=== PATIENT | female | born 1990 | race Caucasian/White ===

== ENCOUNTER 2018-05-07 16:21 | Inpatient (IN) | payer OTHER ==
[~2018-05-07] VITALS: Ht 165.1 cm; Wt 70.0 kg
[2018-05-07 16:32] VITALS: BP 107/52
[2018-05-07 18:30] LABS: BASOPHILS # (AUTO) 0.04 x10^3/uL (0-0.1); BASOPHILS % (AUTO) 0 % (0-1); EOSINOPHILS # (AUTO) 0.07 x10^3/uL (0-0.4); EOSINOPHILS % (AUTO) 1 % (1-7); LYMPHOCYTES # (AUTO) 1.84 x10^3/uL (1-3.4); LYMPHOCYTES % (AUTO) 15 % (22-44); MD NO; MEAN CORPUSCULAR HEMOGLOBIN 30.1 pg (27.0-34.8); MEAN CORPUSCULAR HGB CONC 33.5 g/dL (32.4-35.8); MEAN CORPUSCULAR VOLUME 89.7 fL (80-100); MEAN PLATELET VOLUME 9.7 fL (7.4-10.4); MONOCYTES # (AUTO) 0.93 x10^3/uL (0.2-0.8); MONOCYTES % (AUTO) 8 % (2-9); NEUTROPHILS % (AUTO) 76 % (42-75); PLATELET COUNT 182 x10^3/uL (130-400); RED BLOOD COUNT 3.99 x10^6/uL (3.82-5.3); RED CELL DISTRIBUTION WIDTH 12.4 % (9.6-15.2)
[2018-05-07 19:00] VITALS: BP 108/63
[2018-05-08] MEDS ORDERED: OXYTOCIN 30U/ 0.9% NaCL 500ML 500 ML IV SCH (07:37)
[2018-05-08 07:41] VITALS: BP 103/59
[2018-05-08] MEDS ORDERED: SODIUM CITRATE/CITRIC ACID 30 ML UDC PO ONE (08:00)
[2018-05-08] MEDS ORDERED: LACTATED RINGERS 1,000 ML IVBOLUS ONE (08:00)
[2018-05-08] MEDS ORDERED: ONDANSETRON 2MG/ML, 2ML IVPush ONE (08:00)
[2018-05-08] MEDS ORDERED: CEFAZOLIN PMX 1GM/50ML 50 ML IVPB ONE (08:00)
[2018-05-08] MEDS ORDERED: PNV11TAB5 PO (08:12)
[2018-05-08] MEDS ORDERED: METOCLOPRAMIDE 5 MG/ML, 2ML IV ONE (09:00)
[2018-05-08] MEDS ORDERED: LACTATED RINGERS 1,000 ML IV SCH ×2 (11:00→18:47)
[2018-05-08] MEDS: LACTATED RINGERS 1,000 ML IV SCH ×4 (12:36→22:00)
[2018-05-08] MEDS ORDERED: OXYTOCIN 30U/ 0.9% NaCL 500ML 500 ML ONE (15:26)
[2018-05-08] MEDS ORDERED: SODIUM CITRATE/CITRIC ACID 30 ML UDC ONE (16:21)
[2018-05-08] MEDS ORDERED: METOCLOPRAMIDE 5 MG/ML, 2ML ONE (16:21)
[2018-05-08] MEDS ORDERED: morphine SULFATE/PF 0.5 MG/ML, 10ML ONE (16:36)
[2018-05-08] MEDS ORDERED: CEFAZOLIN 2,000 MG in SODIUM CHLORIDE 0.9% 50 ML IV ONE ×2 (17:30→17:33)
[2018-05-08] MEDS ORDERED: ONDANSETRON 2MG/ML, 2ML ONE (17:32)
[2018-05-08] MEDS ORDERED: EPHEDRINE 50 MG/ML, 1ML ONE (17:32)
[2018-05-08] MEDS ORDERED: OXYTOCIN 10 UNITS/ML, 1ML ONE (17:32)
[2018-05-08] MEDS ORDERED: CEFAZOLIN 1,000 MG ONE ×2 (17:32→18:10)
[2018-05-08] MEDS ORDERED: PHENYLEPHRINE 10 MG/ML ONE (17:32)
[2018-05-08] MEDS ORDERED: WATER-INJECTION,STERILE 10 ML IV ONE (17:32)
[2018-05-08] MEDS ORDERED: METHYLERGONOVINE 0.2 MG/ML IM PRN (19:00)
[2018-05-08] MEDS ORDERED: MISOPROSTOL 200 MCG TABLET PR PRN (19:00)
[2018-05-08] MEDS ORDERED: CARBOPROST TROMETHAMINE 250 MCG/ML, 1ML IM PRN (19:00)
[2018-05-08] MEDS ORDERED: KETOROLAC 30 MG/1 ML ONE (19:17)
[2018-05-08] MEDS: KETOROLAC 30 MG/1 ML IM SCH (19:25)
[2018-05-08] MEDS: OXYTOCIN 30U/ 0.9% NaCL 500ML 500 ML IV SCH (20:15)
[2018-05-08] MEDS: ONDANSETRON 2MG/ML, 2ML IV PRN (21:20)
[2018-05-08 22:00] VITALS: BP 99/60
[2018-05-09] MEDS: LACTATED RINGERS 1,000 ML IV SCH ×5 (01:16→17:16)
[2018-05-09] MEDS: KETOROLAC 30 MG/1 ML IM SCH (01:28)
[2018-05-09 01:37] VITALS: BP 107/64
[2018-05-09 04:20] LABS: BASOPHILS # (AUTO) 0.04 x10^3/uL (0-0.1); BASOPHILS % (AUTO) 0 % (0-1); EOSINOPHILS # (AUTO) 0.02 x10^3/uL (0-0.4); EOSINOPHILS % (AUTO) 0 % (1-7); LYMPHOCYTES # (AUTO) 1.36 x10^3/uL (1-3.4); LYMPHOCYTES % (AUTO) 10 % (22-44); MD NO; MEAN CORPUSCULAR HEMOGLOBIN 29.8 pg (27.0-34.8); MEAN CORPUSCULAR HGB CONC 33.8 g/dL (32.4-35.8); MEAN CORPUSCULAR VOLUME 88.4 fL (80-100); MEAN PLATELET VOLUME 9.7 fL (7.4-10.4); MONOCYTES # (AUTO) 0.78 x10^3/uL (0.2-0.8); MONOCYTES % (AUTO) 6 % (2-9); NEUTROPHILS # (AUTO) 11.54 x10^3/uL (1.8-6.8); NEUTROPHILS % (AUTO) 84 % (42-75); PLATELET COUNT 149 x10^3/uL (130-400); RED BLOOD COUNT 2.97 x10^6/uL (3.82-5.3); RED CELL DISTRIBUTION WIDTH 12.1 % (9.6-15.2)
[2018-05-09 04:44] VITALS: BP 99/63
[2018-05-09] MEDS: OXYTOCIN 30U/ 0.9% NaCL 500ML 500 ML IV SCH ×2 (04:47→14:47)
[2018-05-09] MEDS: OXYcodone/APAP 5/325MG TABLET PO PRN (06:26)
[2018-05-09] MEDS: ONDANSETRON 2MG/ML, 2ML IV PRN (06:26)
[2018-05-09 07:45] VITALS: BP 99/60
[2018-05-09] MEDS ORDERED: KETOROLAC 30 MG/1 ML ONE (08:11)
[2018-05-09] MEDS: KETOROLAC 30 MG/1 ML IVPush SCH ×3 (08:20→20:55)
[2018-05-09] MEDS: PRENATAL VIT/IRON/FA 1 EACH TABLET PO SCH (09:00)
[2018-05-09] MEDS: ACETAMINOPHEN 325 MG TABLET PO PRN ×2 (10:19→14:56)
[2018-05-09] MEDS: OXYcodone IR 5MG TABLET PO PRN ×3 (10:19→20:55)
[2018-05-09 11:45] VITALS: BP_SYST 120; BP_SYST 94; BP_DIAS 57; BP_DIAS 79
[2018-05-09] MEDS ORDERED: KETOROLAC 30 MG/1 ML IVPush SCH (13:30)
[2018-05-09] MEDS: FERROUS GLUCONATE 324 MG TABLET PO SCH (17:08)
[2018-05-09 20:50] VITALS: BP 100/65
[2018-05-10] MEDS: OXYTOCIN 30U/ 0.9% NaCL 500ML 500 ML IV SCH ×3 (00:47→20:47)
[2018-05-10] MEDS: LACTATED RINGERS 1,000 ML IV SCH ×6 (00:47→20:47)
[2018-05-10] MEDS: DOCUSATE 100 MG CAPSULE PO PRN ×2 (02:39→09:56)
[2018-05-10] MEDS: KETOROLAC 30 MG/1 ML IVPush SCH ×2 (02:39→09:56)
[2018-05-10 07:10] VITALS: BP 99/61
[2018-05-10] MEDS: OXYcodone IR 5MG TABLET PO PRN ×3 (09:56→21:48)
[2018-05-10] MEDS: PRENATAL VIT/IRON/FA 1 EACH TABLET PO SCH (09:56)
[2018-05-10] MEDS: FERROUS GLUCONATE 324 MG TABLET PO SCH (17:09)
[2018-05-10] MEDS: IBUPROFEN 600 MG TABLET PO PRN (17:09)
[2018-05-10 20:10] VITALS: BP 104/66
[2018-05-11] MEDS: LACTATED RINGERS 1,000 ML IV SCH ×2 (01:16→06:47)
[2018-05-11] MEDS: OXYTOCIN 30U/ 0.9% NaCL 500ML 500 ML IV SCH (06:47)
[2018-05-11] MEDS: OXYcodone IR 5MG TABLET PO PRN (07:01)
[2018-05-11 07:05] VITALS: BP 106/67
[2018-05-11] MEDS: DOCUSATE 100 MG CAPSULE PO PRN (08:03)
[2018-05-11] MEDS: PRENATAL VIT/IRON/FA 1 EACH TABLET PO SCH (08:03)
[2018-05-11] MEDS: IBUPROFEN 600 MG TABLET PO PRN ×2 (12:30→18:36)
[2018-05-11 20:00] VITALS: BP 110/68
[2018-05-11] MEDS: FERROUS GLUCONATE 324 MG TABLET PO SCH (22:15)
[2018-05-12] MEDS: OXYcodone IR 5MG TABLET PO PRN ×2 (00:03→16:17)
[2018-05-12] MEDS ORDERED: IBUP-1222 PO (07:58)
[2018-05-12] MEDS ORDERED: OXYC-302 PO (07:58)
[2018-05-12] MEDS ORDERED: DOCU-131 PO (07:58)
[2018-05-12] MEDS ORDERED: FERR324T8 PO (07:59)
[2018-05-12] MEDS: IBUPROFEN 600 MG TABLET PO PRN ×2 (08:11→16:17)
[2018-05-12] MEDS: OXYcodone/APAP 5/325MG TABLET PO PRN (08:11)
[2018-05-12] MEDS: PRENATAL VIT/IRON/FA 1 EACH TABLET PO SCH (08:12)
[2018-05-12] MEDS: DOCUSATE 100 MG CAPSULE PO PRN (08:12)
[2018-05-12 08:45] VITALS: BP 106/68
== END 2018-05-12 16:25 | disposition home or self-care (01) | DRG 765 ==
LOC: LDOP 16:21 → LDIP 17:45 → OBSVTOIN 17:45 → 2NW 05-08 20:52
PROVIDERS: ADMIT Obstetrics & Gynecology Maternal & Fetal Medicine; ATTEND Obstetrics & Gynecology Maternal & Fetal Medicine
PROC: 10D00Z1 Extraction of Products of Conception, Low, Open Approach (ICD-10-PCS; principal; 2018-05-08)
DX: O32.1XX0 Maternal care for breech presentation, not applicable or unspecified (principal); O36.5930 Maternal care for other known or suspected poor fetal growth, third trimester, not applicable or unspecified; O76 Abnormality in fetal heart rate and rhythm complicating labor and delivery; O90.81 Anemia of the puerperium; D64.9 Anemia, unspecified; Z3A.37 37 weeks gestation of pregnancy; Z37.0 Single live birth
CPT/HCPCS: 36415; 82803; 85025; 86850; 86900; 88307; J0690; J1885; J2274; J2405; G0378; J2370; J2590; J2765; J7120